=== PATIENT | male | born 1955 | race Caucasian/White ===

== ENCOUNTER → 2023-09-10 | Outpatient (CLI) | payer OTHER ==
--- NOTE | 2023-09-10 21:19 | MR ---
EXAMINATION TYPE: MR Prostate wo/w con DATE OF EXAM: 09/10/2023 1:26 PM COMPARISON: None. CLINICAL INDICATION:Male, 67 years old with history of R97.20 ELEVATED PROSTATE SPECIFIC ANTIGEN [PSA ]; Elevated PSA. TECHNIQUE: Multi-planar, multi-sequence imaging of the pelvis is performed prior to and following the uncomplicated administration of bolus intravenous gadolinium. CONTRAST: 8.5 Gadavist Interpretive Criteria: PI-RADS v2.1 SERUM PSA: 7.13 on 05/05/2023. 2.4 on 06/23/2020. FINDINGS: Prostatic dimensions: 4.9 x 4.7 x 4.0 cm. "Bullet" Volume:60.29 (PSA density=0.12 ng/mL/mL) CENTRAL GLAND (Central and Transition Zones/CZ+TZ): Low T2/high DWI and low ADC signal within the right central gland measuring 12 x 11 mm with arterial phase enhancement. (PI-RADS 3) PERIPHERAL ZONE (PZ): No evidence of masslike abnormality, or localized perfusional hypervascularity, to further suggest a focus of clinically significant prostate cancer. (PI-RADS 2) SEMINAL VESICLES (SV): Symmetric and unremarkable. PERIPROSTATIC TISSUES: Unremarkable. LYMPH NODES: No enlarged pelvic lymph node. REMAINING PELVIS: Bladder wall is within normal limits given distention. No abnormal free or organized intrapelvic fluid collection. No pathologic bowel dilation or mural thickening. Colonic diverticula are present. No hernia visualized OSSEOUS STRUCTURES: No suspicious osseous abnormality. IMPRESSION: 1. PI-RADS 4 lesion in the right central mid gland measuring 12 x 11 mm 2. Moderate BPH, estimated gland volume 60.29 mL. 3. No suspicious osseous lesion. No lymphadenopathy. No evidence of prostate adenocarcinoma involving the periprostatic tissues.
== END | disposition home or self-care (01) ==
LOC: RADMRIMAIN 11:54
PROVIDERS: ATTEND Urology
DX: N40.0 Benign prostatic hyperplasia without lower urinary tract symptoms (principal); R97.20 Elevated prostate specific antigen [PSA]
CPT/HCPCS: 72197; A9585

== ENCOUNTER → 2023-09-23 | Outpatient (CLI) | payer MEDICARE, OTHER ==
[2023-09-24 03:49] LABS: Blood Urea Nitrogen 19.9 mg/dL (9.0-27.0); Calcium 9.5 mg/dL (8.7-10.3); Carbon Dioxide 28.4 mmol/L (21.6-31.8); Chloride 100 mmol/L (96-109); Glucose 98 mg/dL (70-110); Potassium 4.4 mmol/L (3.5-5.5); Sodium 139 mmol/L (135-145)
[2023-09-24 03:50] LABS: Basophils # (A) 0.09 X 10*3/uL (0.00-0.10); Basophils % (A) 1.4 %; Eosinophils # (A) 0.14 X 10*3/uL (0.04-0.35); Eosinophils % (A) 2.2 %; HGB 14.9 g/dL (13.0-17.0); MCH 31.8 pg (27.0-32.0); MCHC 32.4 g/dL (32.0-37.0); MCV 98.3 FL (80.0-97.0); Mean Platelet Volume 9.8 FL (9.5-12.2); Monocytes # (A) 0.67 X 10*3/uL (0.20-1.00); Monocytes % (A) 10.6 %; NRBC Per 100 WBC 0 X 10*3/uL (0.00-0.01); Neutrophils # (A) 3.52 X 10*3/uL (1.80-7.70); Neutrophils % (A) 55.5 %; Platelet Count 293 X 10*3/uL (140-440); RBC 4.68 X 10*6/uL (4.40-5.60); RDW 12.3 % (11.5-14.5); WBC 6.34 X 10*3/uL (4.50-10.00)
== END | disposition home or self-care (01) ==
LOC: LABPAT 14:45
PROVIDERS: ATTEND Urology
DX: Z01.812 Encounter for preprocedural laboratory examination (principal); C61 Malignant neoplasm of prostate
CPT/HCPCS: 80048; 85025

== ENCOUNTER 2023-10-01 09:35 | Day surgery (SDC) | payer MEDICARE, OTHER ==
--- NOTE | 2023-09-29 16:43 | P.GSHP ---
History of Present Illness H&P Date: 09/29/23 Chief Complaint: Elevated PSA level The patient is a 67-year-old white male whose father possibly had prostate cancer. His PSA level in April 2023 was 7.13, up from 6.6 in November 2022. He underwent hemorrhoidectomy at age 28 and states that it is now extremely difficult to undergo digital rectal examination. He has been diagnosed with pelvic floor dysfunction. He underwent MRI of the prostate, revealing a prostate volume of 60.29 cc and a PI-RADS 3/4 lesion measuring 11 x 12 mm involving the right mid central zone. - Genitourinary (Male) Genitourinary: Reports nocturia Past Medical History Past Medical History: Atrial Fibrillation, Cancer, Heart Failure, Hyperlipidemia Additional Past Medical History / Comment(s): heart races sometimes, prostate cancer, hx herpes History of Any Multi-Drug Resistant Organisms: None Reported Past Surgical History: Cardiac Ablation Additional Past Surgical History / Comment(s): hemorrhoidectomy, cardioversion, colonoscopies,cardiac ablation x4, has pelvic floor dysfunction, Past Anesthesia/Blood Transfusion Reactions: No Reported Reaction Smoking Status: Never smoker - Past Family History Father Family Medical History: Cancer Additional Family Medical History / Comment(s): possible prostate Medications and Allergies Home Medications Medication Instructions Recorded Confirmed Type Acyclovir [Zovirax] 400 mg PO TID 09/29/23 09/29/23 History Atorvastatin [Lipitor] 1 tab PO DAILY 09/29/23 09/29/23 History Cardizem (Unk) 30 mg PO HS PRN 09/29/23 09/29/23 History Cyclobenzaprine [Flexeril] 0.25 tab PO HS PRN 09/29/23 09/29/23 History Magnesium 200 mg PO DAILY 09/29/23 09/29/23 History Multivitamins, Thera [Multivitamin 1 tab PO DAILY 09/29/23 09/29/23 History (formulary)] Protein Drink(Unk) 1 dose PO Q48H 09/29/23 09/29/23 History Super B Complex(Unk) 1 tab PO DAILY 09/29/23 09/29/23 History Vit C(Unk) 500 mg PO DAILY 09/29/23 09/29/23 History Vit D(Unk) 125 mcg PO DAILY 09/29/23 09/29/23 History Vit E(Unk) 180 mg PO DAILY 09/29/23 09/29/23 History Zinc (Unk) 25 mg PO DAILY 09/29/23 09/29/23 History cefUROXime axetiL [Ceftin] 500 mg PO BID 09/29/23 09/29/23 History Allergies Allergy/AdvReac Type Severity Reaction Status Date / Time ciprofloxacin [From Cipro] Allergy Swelling Verified 09/29/23 10:17 Surgical - Exam - General well developed, well nourished, no distress - Neck no masses, trachea midline - Respiratory normal respiratory effort - Psychiatric oriented to time, oriented to person, oriented to place, speech is normal, memory intact Assessment and Plan (1) Elevated prostate specific antigen [PSA] Status: Acute Code(s): R97.20 - ELEVATED PROSTATE SPECIFIC ANTIGEN [PSA] SNOMED Code(s): 487162647 Plan: The patient will undergo MRI-Ultrasound fusion transrectal biopsies of the prostate. The procedure has been reviewed with the patient. He has been made aware of potential risks, which include anesthesia, bleeding, and infection. It is also possible that the procedure cannot be performed, depending on the degree of anal stenosis.
[~2023-10-01 09:35] MED LIST: DEXAMETHASONE SOD PHOSPHATE 4 MG/ML 1 ML VIAL IV ONE; HYDROmorphone 0.5 MG/0.5 ML SYRINGE IVP PRN; LACTATED RINGERS 1,000 ML IV SCH; ONDANSETRON 4 MG/2 ML VIAL IVP ONE
[2023-10-01] MEDS: GENTAMICIN 40 MG/ML 2 ML VIAL IM PRN (10:36)
[2023-10-01] MEDS: LACTATED RINGERS 1,000 ML IV ONE (10:53)
[2023-10-01] MEDS: DEXAMETHASONE SOD PHOSPHATE 4 MG/ML 1 ML VIAL IV ONE (10:58)
[2023-10-01] MEDS: ONDANSETRON 4 MG/2 ML VIAL IVP ONE (10:58)
[2023-10-01 11:07] VITALS: TEMP 98.1
[2023-10-01] MEDS ORDERED: KETAMINE HCL IN 0.9 % NACL 50 MG/5 ML SYRINGE ONE (11:18)
[2023-10-01] MEDS ORDERED: MIDAZOLAM 2 MG/2 ML VIAL ONE (11:18)
[2023-10-01] MEDS ORDERED: fentaNYL (PF) 50 MCG/ML 2 ML AMP ONE (11:18)
[2023-10-01] MEDS ORDERED: PROPOFOL 10 MG/ML 20 ML VIAL IV ONE (11:18)
--- NOTE | 2023-10-01 11:45 | P.OP ---
Date of Procedure: 10/01/23 Preoperative Diagnosis: Elevated PSA level Postoperative Diagnosis: Same Procedure(s) Performed: MRI ultrasound-guided fusion biopsies of the prostate Anesthesia: MAC Surgeon: Ilan Kauffman Estimated Blood Loss (ml): 5 IV fluids (ml): 100 Pathology: other (Prostate biopsies) Condition: stable Disposition: PACU Indications for Procedure: The patient is a 67-year-old white male whose father possibly had prostate cancer. His PSA level in April 2023 was 7.13, up from 6.6 in November 2022. He underwent hemorrhoidectomy at age 28 and states that it is now extremely difficult to undergo digital rectal examination. He has been diagnosed with pelvic floor dysfunction. He underwent MRI of the prostate, revealing a prostate volume of 60.29 cc and a PI-RADS 3/4 lesion measuring 11 x 12 mm involving the right mid anterior transitional zone. Operative Findings: 12 template biopsies obtained along with 3 biopsies of the target lesion. Description of Procedure: The patient was taken to the operating room and placed in the left lateral decubitus position. PRINCE revealed the prostate to be mildly enlarged but smooth. The anus was normal in caliber, with no notable scarring. The [employer] transrectal ultrasound probe was placed intrarectally. It was then placed within the stand of the [employer] MRI/TRUS Fusion for Prostate Biopsy system. The prostate was imaged in both the axial and sagittal planes, revealing a prostate volume of 36.6 mL. Using the Biopty gun, 3 biopsies were obtained from the right mid anterior transitional zone target lesion. The remaining 12 biopsies of the peripheral zone were obtained utilizing a standard template. Once the procedure was completed, the ultrasound probe was removed. The patient tolerated the procedure well was taken to the recovery room stable condition.
[2023-10-01 12:43] VITALS: BP 145/75; PULSE 77; RESP 16
== END 2023-10-01 12:30 | disposition home or self-care (01) ==
LOC: OR 09:35
PROVIDERS: ATTEND Urology
DX: C61 Malignant neoplasm of prostate (principal); I48.91 Unspecified atrial fibrillation; E78.5 Hyperlipidemia, unspecified; Z85.46 Personal history of malignant neoplasm of prostate; Z98.890 Other specified postprocedural states; Z79.624 Long term (current) use of inhibitors of nucleotide synthesis; Z88.1 Allergy status to other antibiotic agents; Z79.899 Other long term (current) drug therapy
CPT/HCPCS: 55700; 88305; J2250; J1580; J1100; J2405; J3010; J2704

== ENCOUNTER → 2023-10-22 | Outpatient (CLI) | payer MEDICARE, OTHER ==
[2023-10-22 09:14] LABS: African American GFR (CKD) >90 (>60 ml/min/1.73 sqM); Blood Urea Nitrogen 20 mg/dL (9-20); Non-African American GFR(CKD) 87 (>60 ml/min/1.73 sqM)
--- NOTE | 2023-10-22 13:34 | CT ---
EXAMINATION: CT ABDOMEN AND PELVIS WITH IV CONTRAST DATE OF EXAMINATION: 10/22/2023. COMPARISON: None available. INDICATION: Newly diagnosed prostate cancer. PROCEDURE: Axial CT of the abdomen and pelvis was performed with contrast and sagittal and coronal reformatted images were performed. CT dose lowering techniques were used, to include: automated expos ure control, adjustment for patient size, and/or use of iterative reconstruction. 100 mL of Isovue 30 0 was given intravenously. FINDINGS: LOWER CHEST : The visualized lung bases are clear. There are no pleural or pericardial effusions. ABDOMEN: Liver and Biliary system: Scattered subcentimeter hypodensities and cysts are seen within the liver. The subcentimeter hypodensities are too small to fully characterize.. Adrenal glands: Normal. Kidneys and ureters: There is a 2 mm nonobstructing stone in the interpolar region of the left kidney . The kidneys and ureters otherwise appear unremarkable Spleen: Normal. Pancreas: Normal. Gallbladder: Normal. Lymph nodes, Peritoneum and mesentery: There is no mesenteric or retroperitoneal lymphadenopathy. Gastrointestinal tract: There are no dilated loops of bowel or free intraperitoneal air. Findings there is normal. There is moderate to significant descending colonic and sigmoid colonic div erticulosis without evidence of diverticulitis. Aorta/IVC: There is mild vascular calcification and plaque seen throughout the abdominal aorta with out evidence of aneurysmal dilation or dissection. IVC normal. Abdominal wall: There is a small fat-containing umbilical hernia.. PELVIS: Fluid: There is no free fluid in the pelvis. Lymph Nodes: There is no pelvic or inguinal lymphadenopathy.. Urinary bladder: Normal. BONES: There are no osseous destructive lesions.. ADDITIONAL SIGNIFICANT FINDINGS: The prostate is mildly enlarged. IMPRESSION: 1. No evidence of metastatic disease seen within the abdomen or pelvis. 2. Mild prostamegaly. 3. Diverticulosis without evidence of diverticulitis. 4. Small fat-containing umbilical hernia.
--- NOTE | 2023-10-22 15:39 | NM ---
EXAMINATION TYPE: NM bone scan whole body DATE OF EXAM: 10/22/2023 1:50 PM CLINICAL INDICATION:Male, 67 years old with history of C61 PROSTATE CA; COMPARISON: CT 10/22/2023, MR 09/10/2023 TECHNIQUE: Intravenous administration 22.9 mCi Tc 99m MDP followed by multiple scintigraphic images o f the appendicular and axial skeleton. Additionally, small field of view planar anterior and posterio r images of the lumbosacral spine and pelvis. Lastly, coronal, transverse, and sagittal SPECT images of the lumbosacral spine and pelvis were generated for review.Lastly, small [id number] anterior, p osterior and lateral views of the chest were submitted for review. Images acquired 4 hours post injection. FINDINGS: No abnormal uptake is identified within the appendicular or axial skeleton to suggest metastatic dise ase. There is increased uptake within the bilateral shoulder, sternoclavicular, and sacroiliac joints con sistent with degenerative changes. No other photopenic areas or areas of increased activity are ident ified. Physiologic radiotracer activity is demonstrated in the kidneys and bladder. IMPRESSION: Nothing to suggest metastatic disease.
== END | disposition home or self-care (01) ==
LOC: RADCTMAIN 08:22
PROVIDERS: ATTEND Urology
DX: C61 Malignant neoplasm of prostate (principal); K42.9 Umbilical hernia without obstruction or gangrene; K57.90 Diverticulosis of intestine, part unspecified, without perforation or abscess without bleeding
CPT/HCPCS: 82565; 84520; 74177; 78306; A9503; Q9967